=== PATIENT | male | born 2005 | race Caucasian/White ===

== ENCOUNTER 2024-04-07 20:41 | Emergency (ER) | payer MEDICAID ==
[~2024-04-07] VITALS: Ht 180.3 cm; Wt 110.0 kg
[2024-04-07 21:05] VITALS: BP 148/80; PULSE 100; RESP 16; TEMP 98.9; O2SAT 99
== END 2024-04-07 21:40 | disposition left against medical advice (07) ==
LOC: EDBD 20:41 → ER 20:41
DX: F41.9 Anxiety disorder, unspecified (principal); Z53.21 Procedure and treatment not carried out due to patient leaving prior to being seen by health care provider